=== PATIENT | female | born 1990 | race Caucasian/White ===

== ENCOUNTER 2019-01-02 17:19 | Outpatient (CLI) | payer SELFPAY ==
[~2019-01-02] VITALS: Ht 167.6 cm; Wt 72.7 kg
[2019-01-02 17:51] LABS: FERNING TEST FERNING NOT PRESENT (NEGATIVE)
[2019-01-25] MEDS ORDERED: IBUP-1222 PO (12:32)
[2019-01-25] MEDS ORDERED: DOCU-131 PO (12:33)
[2019-01-25] MEDS ORDERED: OXYC-302 PO (12:33)
== END 2019-01-02 20:24 | disposition home or self-care (01) ==
LOC: LDOP 17:19
PROVIDERS: ATTEND Obstetrics & Gynecology
DX: O42.92 Full-term premature rupture of membranes, unspecified as to length of time between rupture and onset of labor (principal); Z3A.38 38 weeks gestation of pregnancy
CPT/HCPCS: 59025; 76815; 84112; 89060; 99201; G0463; Q0114